=== PATIENT | female | born 1975 | race Caucasian/White ===

== ENCOUNTER 2024-11-03 09:43 | Day surgery (SDC) | payer BC ==
[~2024-11-03] VITALS: Ht 175.3 cm; Wt 76.0 kg
[~2024-11-03 09:43] MED LIST: Atropine Sulfate 0.1 MG/ML 10ML SYR ONE; Glycopyrrolate 0.2 MG/ML 1MLVIAL ONE; Lactated Ringer's 1,000 ML IV ONE; Lidocaine 2% 5 ML SDV ONE; Lidocaine HCl/Pf 1% 5 ML VIAL ONE; Methylene Blue 1% 100 MG/10 ML VIAL ONE; Ondansetron HCl 2 MG / ML 2ML Vial ONE; ePHEDrine Sulfate 50 MG/ML 1ML Injection ONE; propofoL 50 ML IV ONE
[2024-11-03] MEDS ORDERED: LEVSOD137 (10:07)
[2024-11-03] MEDS ORDERED: CATAPRES-TTS 11 EAC1 (10:07)
[2024-11-03] MEDS ORDERED: METF500 (10:08)
[2024-11-03] MEDS ORDERED: Naltrexone HCl50 MG (10:08)
[2024-11-03] MEDS ORDERED: Lactated Ringer's 1,000 ML IV ONE (10:50)
[2024-11-03] MEDS ORDERED: propofoL 50 ML IV ONE (12:26)
== END 2024-11-03 13:31 | disposition home or self-care (01) ==
LOC: ORSCSDS 09:43
PROVIDERS: Internal Medicine Gastroenterology
PROC: 0DB78ZX Excision of Stomach, Pylorus, Via Natural or Artificial Opening Endoscopic, Diagnostic (ICD-10-PCS; principal; 2024-11-03 11:45)
PROC: 0DBN8ZX Excision of Sigmoid Colon, Via Natural or Artificial Opening Endoscopic, Diagnostic (ICD-10-PCS; principal; 2024-11-03 11:45)
PROC: 0DBE8ZX Excision of Large Intestine, Via Natural or Artificial Opening Endoscopic, Diagnostic (ICD-10-PCS; principal; 2024-11-03 11:45)
PROC: 0DB98ZX Excision of Duodenum, Via Natural or Artificial Opening Endoscopic, Diagnostic (ICD-10-PCS; principal; 2024-11-03 11:45)
DX: K92.1 Melena (principal); D64.9 Anemia, unspecified; D12.5 Benign neoplasm of sigmoid colon; K44.9 Diaphragmatic hernia without obstruction or gangrene; Z79.84 Long term (current) use of oral hypoglycemic drugs; Z79.899 Other long term (current) drug therapy; F41.9 Anxiety disorder, unspecified
CPT/HCPCS: 82947; 88305; 88342; J0461; J2003; J2405; J2704; J7120; Q9968